=== PATIENT | male | born 1975 | race Two or more races ===

== ENCOUNTER 2025-09-29 16:35 | Emergency (ER) | payer MEDICAID ==
[~2025-09-29] VITALS: Ht 190.5 cm; Wt 92.2 kg
[2025-09-29 16:52] VITALS: TEMP 98.9
[2025-09-29 17:06] LABS: GLUCOMETER DEV NAME(LOC) ERT.7; GLUCOSE,POINT OF CARE 360 MG/DL (70-110)
[2025-09-29] MEDS ORDERED: INSREG SQ (17:42)
[2025-09-29] MEDS ORDERED: METF-1211 PO (17:42)
[2025-09-29 18:48] LABS: PLATELET COUNT (AUTO) 193 K/uL (150-450); RED BLOOD CELL COUNT(AUTO) 4.55 MIL/uL (4.50-5.90); RED CELL DISTRIBUTION WIDTH 14.1 % (11.5-14.5); WHITE BLOOD COUNT (AUTO) 5.9 K/uL (4.5-11.0)
[2025-09-29 18:52] LABS: CALCIUM, TOTAL 8.2 mg/dL (8.8-10.5); CREATININE 0.81 mg/dL (0.60-1.30); GLOMERULAR FILTR. RATE CALC > 60 mL/min (>60); GLUCOSE,RANDOM 330 mg/dL (70-110); SODIUM SERUM 135 mmol/L (136-145); UREA NITROGEN, BLOOD 10 mg/dL (7-18)
[2025-09-29 18:56] LABS: ASPARTATE AMINOTRANSFERASE 73.0 U/L (15-37); TOTAL PROTEIN, SERUM 6.8 g/dL (6.4-8.2)
[2025-09-29 20:47] LABS: APPEARANCE,URINE CLEAR (CLEAR); GLUCOSE, URINE (UA) >=1000 mg/dL (NEGATIVE); LEUKOCYTE ESTERASE ,URINE NEGATIVE (NEGATIVE); NITRATE,URINE NEGATIVE (NEGATIVE); OCCULT BLOOD,URINE NEGATIVE (NEGATIVE); SPECIFIC GRAVITIY, URINE 1.027 (1.003-1.030)
[2025-09-29 21:07] LABS: SQUAMOUS EPITHELIAL CELL,UR Rare /LPF (None Seen); YEAST,URINE Rare /HPF (None Seen)
[2025-09-29] MEDS: MAG HYDROX/ALUMINUM HYD/SIMETH 30 ML SUSPENSION UDCUP PO ONE (23:06)
[2025-09-29] MEDS: FAMOTIDINE 20 MG/2 ML VIAL IVP ONE (23:06)
[2025-09-29] MEDS: ONDANSETRON HCL 4 MG/2 ML VIAL IVP ONE (23:06)
[2025-09-29] MEDS: ACETAMINOPHEN 500 MG TABLET PO ONE (23:06)
[2025-09-30] MEDS ORDERED: IOHEXOL 350 MG/ML 100 ML VIAL ONE (00:15)
[2025-09-30 02:00] VITALS: BP 116/68; PULSE 90; RESP 16; O2SAT 97
== END 2025-09-30 03:26 | disposition home or self-care (01) ==
LOC: EMS 16:37
DX: K86.1 Other chronic pancreatitis (principal); R10.13 Epigastric pain; E11.9 Type 2 diabetes mellitus without complications; F17.210 Nicotine dependence, cigarettes, uncomplicated; Z90.49 Acquired absence of other specified parts of digestive tract; Z79.899 Other long term (current) drug therapy
CPT/HCPCS: 99285; 74177; 96374; 76705; 96375; 80048; 80076; 81001; 82009; 82962; 83690; 85025; 36415; J3490; J2405; Q9967